=== PATIENT | female | born 1950 | race Caucasian/White ===

== ENCOUNTER 2020-03-06 15:18 | Emergency (ER) | payer BC ==
[~2020-03-06] VITALS: Ht 157.5 cm; Wt 85.7 kg
[2020-03-06] MEDS ORDERED: INVOKANA300 MG PO (15:35)
[2020-03-06] MEDS ORDERED: METFORMIN HCL500 M3 PO (15:35)
[2020-03-06] MEDS ORDERED: TOPROL XL25 MG PO (15:35)
[2020-03-06] MEDS ORDERED: COZAAR 25 MG TA25 M2 PO (15:36)
[2020-03-06 15:56] LABS: ABSOLUTE EOSINOPHILS 0.1 thou/uL (0.0-0.7); ABSOLUTE LYMPHOCYTES 2.5 thou/uL (0.8-5.3); ABSOLUTE MONOCYTES 0.7 thou/uL (0.0-1.2); ABSOLUTE NEUTROPHILS 4.7 thou/uL (1.6-8.1); BASOPHILS 0.3 %; EOSINOPHILS 1.5 %; HEMATOCRIT 36.4 % (37.0-47.0); HEMOGLOBIN 12.1 gm/dL (12.0-15.0); LYMPHOCYTES 31.5 %; MCH 27.8 pg (26.0-34.0); MCHC 33.2 g/dL (28.0-37.0); MCV 83.9 fL (80.0-100.0); MONOCYTES 8.2 %; MPV 6.3 fl. (7.2-11.1); NUCLEATED RBCS 0 /100WBC; PLATELET COUNT* 258 thou/uL (150-400); POLYS 58.5 %; RBC 4.34 mil/uL (4.20-5.00); RDW-CV 12.7 % (10.5-14.5); WBC 8.1 thou/uL (4.0-11.0)
[2020-03-06 15:57] LABS: PCO2 VENOUS 36.6 mmHg (41.0-51.0); PO2 VENOUS 46.9 mmHg (35.0-45.0)
[2020-03-06 16:03] LABS: URINE BILIRUBIN NEGATIVE (Negative); URINE BLOOD NEGATIVE (Negative); URINE CLARITY CLEAR; URINE COLOR YELLOW; URINE GLUCOSE-RANDOM 2+ (Negative); URINE KETONES NEGATIVE (Negative); URINE LEUKOCYTES-REFLEX TRACE (Negative); URINE NITRITE-REFLEX NEGATIVE (Negative); URINE PROTEIN NEGATIVE (Negative); URINE UROBILINOGEN 0.2 E.U./dl (0.2-1.0)
[2020-03-06 16:03] LABS: CALCIUM 9.5 mg/dL (8.5-10.1); CREATININE 1.3 mg/dL (0.6-1.3)
[2020-03-06 16:14] LABS: ALBUMIN 3.6 g/dL (3.4-5.0); TOTAL BILIRUBIN 0.4 mg/dL (<0.1-1.0); TOTAL PROTEIN 7.4 g/dL (6.4-8.2)
[2020-03-06 16:29] VITALS: BP 168/60
[2020-03-06 16:43] LABS: SQUAMOUS >10 Many /LPF (0-3)
[2020-03-06 16:44] LABS: CASTS None Seen /LPF (None Seen); CRYSTALS None Seen /LPF (None Seen); URINE WBC-REFLEX 0-5 Rare /HPF (0-5)
[2020-03-06 16:45] LABS: BACTERIA-REFLEX 1-9 Few /HPF (None Seen); URINE RBC None Seen /HPF (0-2)
--- NOTE | 2020-03-07 12:49 | EKG ---
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 : 1950 Requested By: Fahad Otoole Order Number: [id number] MD: Blaze Myers Measurements Intervals [place] Rate: 64 P: 24 IL: 195 QRS: -24 QRSD: 108 T: 81 QT: 396 QTc: 409 Interpretive Statements Sinus rhythm Atrial premature complex LVH with secondary repolarization abnormality No previous ECG available for comparison Electronically Signed On 03-07-2020 12:49:26 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
== END 2020-03-06 16:30 | disposition home or self-care (01) ==
LOC: M.ERS 15:18
PROVIDERS: Family Medicine
DX: I10 Essential (primary) hypertension (principal); E11.9 Type 2 diabetes mellitus without complications; Z88.5 Allergy status to narcotic agent; Z88.8 Allergy status to other drugs, medicaments and biological substances; Z98.890 Other specified postprocedural states; Z90.49 Acquired absence of other specified parts of digestive tract; Z90.710 Acquired absence of both cervix and uterus; Z96.652 Presence of left artificial knee joint

== ENCOUNTER 2020-05-24 21:42 | Emergency (ER) | payer BC ==
[~2020-05-24] VITALS: Ht 160 cm; Wt 85.3 kg
[~2020-05-24 21:42] MED LIST: COZAAR 25 MG TA25 M2 PO; INVOKANA300 MG PO; METFORMIN HCL500 M3 PO; TOPROL XL25 MG PO
[2020-05-24] MEDS ORDERED: CHILDREN'S ASPI81 M1 PO (22:29)
[2020-05-24] MEDS ORDERED: HYDRALAZINE 2525 MG PO (22:30)
[2020-05-24 23:07] LABS: ABSOLUTE EOSINOPHILS 0.2 thou/uL (0.0-0.7); ABSOLUTE LYMPHOCYTES 2.8 thou/uL (0.8-5.3); ABSOLUTE MONOCYTES 0.8 thou/uL (0.0-1.2); ABSOLUTE NEUTROPHILS 4.6 thou/uL (1.6-8.1); BASOPHILS 0.6 %; EOSINOPHILS 2.2 %; HEMATOCRIT 34.3 % (37.0-47.0); HEMOGLOBIN 11.4 gm/dL (12.0-15.0); LYMPHOCYTES 33.8 %; MCH 27.5 pg (26.0-34.0); MCHC 33.3 g/dL (28.0-37.0); MCV 82.5 fL (80.0-100.0); MPV 6.6 fl. (7.2-11.1); NUCLEATED RBCS 0 /100WBC; PLATELET COUNT* 256 thou/uL (150-400); POLYS 54.4 %; RBC 4.16 mil/uL (4.20-5.00); WBC 8.4 thou/uL (4.0-11.0)
[2020-05-24 23:14] LABS: INR 0.9; PROTIME 10.1 Seconds (9.20-11.50)
[2020-05-24 23:32] LABS: CALCIUM 9.1 mg/dL (8.5-10.1); CREATININE 1.4 mg/dL (0.6-1.3); POTASSIUM 3.8 mmol/L (3.5-5.1)
[2020-05-24 23:43] LABS: ALBUMIN 3.6 g/dL (3.4-5.0); TOTAL BILIRUBIN 0.2 mg/dL (<0.1-1.0); TOTAL PROTEIN 6.8 g/dL (6.4-8.2)
[2020-05-25] MEDS ORDERED: MEDROLDOSEPACK PO (00:57)
[2020-05-25] MEDS ORDERED: HYDROCODON-ACE1 EAC7 PO (00:57)
[2020-05-25] MEDS ORDERED: IBUPROFEN 600600 M1 PO (00:57)
[2020-05-25 01:14] VITALS: BP 166/62
--- NOTE | 2020-05-25 13:37 | EKG ---
[place] [address] ELECTROCARDIOGRAM REPORT Name: ROMA CAMPOVERDE Room: 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 : 1950 Requested By: Amy Jacobsen Order Number: [id number] MD: Demetrius Bonilla Measurements Intervals [place] Rate: 63 P: 26 SD: 199 QRS: -26 QRSD: 110 T: 41 QT: 421 QTc: 431 Interpretive Statements Sinus rhythm Left ventricular hypertrophy Compared to ECG 03/06/2020 15:37:46 Atrial premature complex(es) no longer present Electronically Signed On 05-25-2020 13:37:16 FLYER MAKER by Demetrius Bonilla [email or web address] <ELECTRONICALLY SIGNED> By: Demetrius Bonilla MD, FAC 05/25/20 1337 38 38 Demetrius Bonilla MD, [facility] /EPI
== END 2020-05-25 01:15 | disposition home or self-care (01) ==
LOC: M.ERS 21:42
PROVIDERS: Personal Emergency Response Attendant
DX: I16.0 Hypertensive urgency (principal); M25.532 Pain in left wrist; I10 Essential (primary) hypertension; E11.9 Type 2 diabetes mellitus without complications; Z90.710 Acquired absence of both cervix and uterus; Z79.899 Other long term (current) drug therapy; Z88.5 Allergy status to narcotic agent; Z88.8 Allergy status to other drugs, medicaments and biological substances

== ENCOUNTER → 2020-10-15 | Outpatient (CLI) | payer BC ==
[~2020-10-15] MED LIST changes: +CHILDREN'S ASPI81 M1 PO; +HYDRALAZINE 2525 MG PO; +HYDROCODON-ACE1 EAC7 PO; +IBUPROFEN 600600 M1 PO; +MEDROLDOSEPACK PO
== END ==
LOC: M.RAD 13:30
PROVIDERS: ATTEND Nurse Practitioner Family
DX: Z12.31 Encounter for screening mammogram for malignant neoplasm of breast (principal)

== ENCOUNTER 2021-02-25 15:44 | Emergency (ER) | payer BC ==
[~2021-02-25] VITALS: Ht 157.5 cm; Wt 84.4 kg
[2021-02-25 16:21] LABS: ABSOLUTE BASOPHILS 0.1 thou/uL (0.0-0.2); ABSOLUTE EOSINOPHILS 0.1 thou/uL (0.0-0.7); ABSOLUTE LYMPHOCYTES 2.4 thou/uL (0.8-5.3); ABSOLUTE MONOCYTES 0.6 thou/uL (0.0-1.2); ABSOLUTE NEUTROPHILS 3.9 thou/uL (1.6-8.1); BASOPHILS 0.7 %; EOSINOPHILS 1.4 %; HEMATOCRIT 36.6 % (37.0-47.0); HEMOGLOBIN 12.1 gm/dL (12.0-15.0); LYMPHOCYTES 34.1 %; MCH 27.4 pg (26.0-34.0); MCHC 33.1 g/dL (28.0-37.0); MCV 82.8 fL (80.0-100.0); MONOCYTES 8.6 %; MPV 6.5 fl. (7.2-11.1); NUCLEATED RBCS 0 /100WBC; PLATELET COUNT* 229 thou/uL (150-400); POLYS 55.2 %; RBC 4.42 mil/uL (4.20-5.00); RDW-CV 13.1 % (10.5-14.5); WBC 7.1 thou/uL (4.0-11.0)
[2021-02-25 16:34] LABS: CALCIUM 9.3 mg/dL (8.5-10.1); CREATININE 1.2 mg/dL (0.6-1.3); POTASSIUM 4.3 mmol/L (3.5-5.1)
[2021-02-25 16:45] LABS: ALBUMIN 3.8 g/dL (3.4-5.0); MAGNESIUM 2.4 mg/dL (1.8-2.4); TOTAL BILIRUBIN 0.4 mg/dL (<0.1-1.0); TOTAL PROTEIN 7.1 g/dL (6.4-8.2)
[2021-02-25 18:22] VITALS: BP 154/67
--- NOTE | 2021-02-26 11:30 | EKG ---
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
== END 2021-02-25 18:23 | disposition home or self-care (01) ==
LOC: M.ERS 15:44
PROVIDERS: Family Medicine
DX: I10 Essential (primary) hypertension (principal); E11.9 Type 2 diabetes mellitus without complications; Z90.49 Acquired absence of other specified parts of digestive tract; Z90.710 Acquired absence of both cervix and uterus; Z79.899 Other long term (current) drug therapy; Z88.8 Allergy status to other drugs, medicaments and biological substances; Z88.5 Allergy status to narcotic agent